=== PATIENT | male | born 1940 | race Caucasian/White ===

== ENCOUNTER 2018-02-23 19:06 | Inpatient (IN) | payer MEDICARE ==
[~2018-02-23] VITALS: Ht 177.8 cm; Wt 98.2 kg
[2018-02-23] MEDS ORDERED: HYDR25TA4 PO (22:42)
[2018-02-23] MEDS ORDERED: SPIR25TA PO (22:42)
[2018-02-23] MEDS ORDERED: FLUT1BLS3 (22:42)
[2018-02-23] MEDS ORDERED: PRAZ1CAP5 PO (22:42)
[2018-02-23] MEDS ORDERED: ALBU18HF2 INH (22:42)
[2018-02-24] MEDS ORDERED: normal saline 1000ml 1,000 ML IV SCH (00:12)
[2018-02-24] MEDS ORDERED: acetaminophen 325mg tablet PO PRN (00:15)
[2018-02-24] MEDS ORDERED: magnesium hydroxide 30ml (MOM) UD suspension PO PRN (00:15)
[2018-02-24] MEDS ORDERED: mag hydrox/Alum hydrox/simeth 30ml oral suspension PO PRN (00:15)
[2018-02-24] MEDS ORDERED: bisacodyl 10mg suppository rectal RC PRN (00:15)
[2018-02-24] MEDS ORDERED: nitroGLYCERIN 0.4mg SUBLingual tab SL PRN (00:20)
[2018-02-24 01:17] LABS: CHOL/HDL RATIO 2.6 (0.00-4.99); CHOLESTEROL 167 MG/DL (0-200); HDL CHOLESTEROL 65 MG/DL (35-60); LDL CHOLESTEROL 90 MG/DL (50-100); TRIGLYCERIDES 46 MG/DL (20-135)
[2018-02-24 01:20] VITALS: BP_SYST 139; BP_SYST 145; BP_DIAS 55; BP_DIAS 59
[2018-02-24] MEDS ORDERED: BUDE10.22 INH (01:25)
[2018-02-24] MEDS: furosemide 10 MG/1 ML 10ml inj IV SCH ×2 (01:38→07:29)
[2018-02-24] MEDS: ipratropium/albuterol 3ml nebule NEB SCH ×6 (03:42→23:29)
[2018-02-24] MEDS: CefTRIAXone/D5W-Rocephin 1gm 50 ML IV SCH ×2 (05:34→20:51)
[2018-02-24 06:15] VITALS: BP 153/79
[2018-02-24] MEDS ORDERED: haloperidol lactate 5mg/ml inj IM ONE (06:35)
[2018-02-24] MEDS: lactobacillus rhamnosus 10,000 MMU CELLS/CAPSULE PO SCH ×2 (07:29→20:38)
[2018-02-24] MEDS: heparin, porcine 5000 units/ml vial SQ SCH ×2 (07:29→20:40)
[2018-02-24] MEDS: prazosin 1mg capsule PO SCH ×2 (07:29→20:40)
[2018-02-24] MEDS ORDERED: HYDROchlorothiazide 25mg tablet PO SCH (08:00)
[2018-02-24] MEDS ORDERED: amiodarone 200mg tablet PO ONE (09:10)
[2018-02-24 11:44] VITALS: BP 108/63
[2018-02-24] MEDS ORDERED: albuterol 2.5 MG/3 ML nebule NEB PRN (12:05)
[2018-02-24 15:52] LABS: CLARITY,URINE CLEAR (Clear); COLOR,URINE YELLOW (Yellow); GLUCOSE, URINE NEGATIVE (Neg); KETONES,URINE NEGATIVE (Neg); LEUKOCYTE ESTERASE ,URINE NEGATIVE (Neg); NITRITES, URINE NEGATIVE (Neg); OCCULT BLOOD,URINE NEGATIVE (Neg); PROTEIN,URINE NEGATIVE (Neg); UROBILINOGEN,URINE 0.2 E.U/dL (0.2-1.0)
[2018-02-24 15:53] LABS: UA COLLECTION TYPE CLN CATCH MIDSTREAM
[2018-02-24 16:43] LABS: ALBUMIN 3.7 G/DL (3.4-5.0); ANION GAP 9 (8-16); BLOOD UREA NITROGEN 33 MG/DL (7-18); BUN/CREATININE RATIO 29.2 (5.4-32.0); CALCIUM 9.1 MG/DL (8.5-10.1); CHLORIDE 97 MMOL/L (99-107); CREATININE 1.13 MG/DL (0.60-1.10); GLUCOSE 110 MG/DL (70-104); POTASSIUM 3.8 MMOL/L (3.5-5.1); SODIUM 139 MMOL/L (135-145); TOTAL CARBON DIOXIDE 32.9 MMOL/L (24-32); eGFR 63 ML/MIN
[2018-02-24 17:00] LABS: BASOPHILS % (AUTO) 0.3 % (0-1); EOSINOPHILS % (AUTO) 0 % (0-6); HEMOGLOBIN 17.6 g/dl (14.0-17.9); LYMPHOCYTES # (AUTO) 0.7 X10'3 (1.1-4.8); LYMPHOCYTES % (AUTO) 4.6 % (21-51); MEAN CORPUSCULAR HEMOGLOBIN 29.5 PG (27.0-31.0); MEAN CORPUSCULAR HGB CONC 33.2 % (33.0-36.5); MEAN CORPUSCULAR VOLUME 88.9 FL (78-98); MEAN PLATELET VOLUME 7.5 FL (7.4-10.4); MONOCYTES # (AUTO) 1.3 X10'3 (0-0.9); NEUTROPHILS # (AUTO) 12.5 X10'3 (1.8-7.7); NEUTROPHILS % (AUTO) 86.1 % (42-75); PLATELET COUNT 238 X10'3 (140-440); RED BLOOD COUNT 5.96 X10'6 (4.70-6.10); RED CELL DISTRIBUTION WIDTH 14.9 % (11.5-14.5); WHITE BLOOD COUNT 14.6 X10'3 (4.5-11.0)
[2018-02-24 19:00] VITALS: BP 120/52
[2018-02-24] MEDS: furosemide 20 MG/2 ML vial IV SCH (20:33)
[2018-02-24] MEDS: metoprolol tartrate 12.5mg (1/2 tablet) PO SCH (20:38)
[2018-02-24] MEDS: amiodarone 200mg tablet PO SCH (20:38)
[2018-02-25] VITALS (11 sets, daily range): BP systolic 81–129; BP diastolic 46–69
[2018-02-25] MEDS: ipratropium/albuterol 3ml nebule NEB SCH ×5 (03:18→19:52)
[2018-02-25 07:02] LABS: BASOPHILS % (AUTO) 0.2 % (0-1); EOSINOPHILS # (AUTO) 0.1 X10'3 (0-0.9); EOSINOPHILS % (AUTO) 0.5 % (0-6); HEMATOCRIT 51.7 % (42.0-52.0); LYMPHOCYTES # (AUTO) 0.7 X10'3 (1.1-4.8); LYMPHOCYTES % (AUTO) 6.7 % (21-51); MEAN CORPUSCULAR HEMOGLOBIN 29.1 PG (27.0-31.0); MEAN CORPUSCULAR HGB CONC 32.8 % (33.0-36.5); MEAN CORPUSCULAR VOLUME 88.6 FL (78-98); MEAN PLATELET VOLUME 7.2 FL (7.4-10.4); MONOCYTES # (AUTO) 0.9 X10'3 (0-0.9); MONOCYTES % (AUTO) 8.8 % (2-12); NEUTROPHILS % (AUTO) 83.8 % (42-75); PLATELET COUNT 221 X10'3 (140-440); RED BLOOD COUNT 5.84 X10'6 (4.70-6.10); RED CELL DISTRIBUTION WIDTH 14.9 % (11.5-14.5); WHITE BLOOD COUNT 10.7 X10'3 (4.5-11.0)
[2018-02-25 07:25] LABS: ALANINE AMINOTRANSFERASE 90 U/L (12-78); ALBUMIN 3.4 G/DL (3.4-5.0); ALKALINE PHOSPHATASE 65 IU/L (46-116); ANION GAP 6 (8-16); ASPARTATE AMINO TRANSFERASE 122 U/L (10-37); BILIRUBIN,TOTAL 0.6 MG/DL (0.1-1.0); BLOOD UREA NITROGEN 34 MG/DL (7-18); BUN/CREATININE RATIO 29.6 (5.4-32.0); CHLORIDE 97 MMOL/L (99-107); CREATININE 1.15 MG/DL (0.60-1.10); GLUCOSE 130 MG/DL (70-104); MAGNESIUM 2.3 MG/DL (1.5-2.4); POTASSIUM 3.4 MMOL/L (3.5-5.1); SODIUM 140 MMOL/L (135-145); TOTAL CARBON DIOXIDE 37.1 MMOL/L (24-32); TOTAL PROTEIN 6.7 G/DL (6.4-8.2); eGFR 62 ML/MIN
[2018-02-25] MEDS: amiodarone 200mg tablet PO SCH ×2 (08:44→19:22)
[2018-02-25] MEDS: metoprolol tartrate 12.5mg (1/2 tablet) PO SCH ×2 (08:44→19:21)
[2018-02-25] MEDS: lactobacillus rhamnosus 10,000 MMU CELLS/CAPSULE PO SCH ×2 (08:45→19:22)
[2018-02-25] MEDS: prazosin 1mg capsule PO SCH ×2 (08:45→19:21)
[2018-02-25] MEDS: heparin, porcine 5000 units/ml vial SQ SCH ×2 (08:46→19:23)
[2018-02-25] MEDS: furosemide 20 MG/2 ML vial IV SCH ×2 (08:47→19:20)
[2018-02-25] MEDS ORDERED: furosemide 40mg/4ml inj IV ONE (19:45)
[2018-02-25] MEDS ORDERED: amiodarone 150mg/dext, iso-os 100 ML IV ONE (20:25)
[2018-02-25] MEDS: CefTRIAXone/D5W-Rocephin 1gm 50 ML IV SCH (21:26)
[2018-02-25] MEDS: amiodarone/D5 360MG/200ML BAG 200 ML IV SCH (22:23)
[2018-02-26] MEDS: ipratropium/albuterol 3ml nebule NEB SCH ×7 (00:08→23:29)
[2018-02-26] MEDS: amiodarone/D5 360MG/200ML BAG 200 ML IV SCH (03:50)
[2018-02-26 05:40] LABS: BASOPHILS % (AUTO) 0.1 % (0-1); EOSINOPHILS # (AUTO) 0.1 X10'3 (0-0.9); EOSINOPHILS % (AUTO) 0.8 % (0-6); HEMATOCRIT 49.8 % (42.0-52.0); HEMOGLOBIN 16.4 g/dl (14.0-17.9); LYMPHOCYTES # (AUTO) 0.7 X10'3 (1.1-4.8); LYMPHOCYTES % (AUTO) 7.7 % (21-51); MEAN CORPUSCULAR HEMOGLOBIN 29.4 PG (27.0-31.0); MEAN CORPUSCULAR HGB CONC 32.8 % (33.0-36.5); MEAN CORPUSCULAR VOLUME 89.6 FL (78-98); MONOCYTES # (AUTO) 0.8 X10'3 (0-0.9); NEUTROPHILS # (AUTO) 7.6 X10'3 (1.8-7.7); NEUTROPHILS % (AUTO) 82.4 % (42-75); PLATELET COUNT 221 X10'3 (140-440); RED BLOOD COUNT 5.56 X10'6 (4.70-6.10); RED CELL DISTRIBUTION WIDTH 14.3 % (11.5-14.5); WHITE BLOOD COUNT 9.2 X10'3 (4.5-11.0)
[2018-02-26 06:01] LABS: ALANINE AMINOTRANSFERASE 85 U/L (12-78); ALBUMIN 3.2 G/DL (3.4-5.0); ALKALINE PHOSPHATASE 60 IU/L (46-116); ANION GAP 5 (8-16); ASPARTATE AMINO TRANSFERASE 83 U/L (10-37); BILIRUBIN,TOTAL 0.5 MG/DL (0.1-1.0); BLOOD UREA NITROGEN 33 MG/DL (7-18); BUN/CREATININE RATIO 30.6 (5.4-32.0); CALCIUM 8.7 MG/DL (8.5-10.1); CHLORIDE 96 MMOL/L (99-107); CREATININE 1.08 MG/DL (0.60-1.10); GLUCOSE 117 MG/DL (70-104); MAGNESIUM 2.2 MG/DL (1.5-2.4); POTASSIUM 3.3 MMOL/L (3.5-5.1); SODIUM 139 MMOL/L (135-145); TOTAL CARBON DIOXIDE 38.5 MMOL/L (24-32); TOTAL PROTEIN 6.4 G/DL (6.4-8.2); eGFR 67 ML/MIN
[2018-02-26 06:35] VITALS: BP 112/57
[2018-02-26] MEDS: furosemide 20 MG/2 ML vial IV SCH ×2 (09:13→20:09)
[2018-02-26] MEDS: lactobacillus rhamnosus 10,000 MMU CELLS/CAPSULE PO SCH ×2 (09:14→20:08)
[2018-02-26] MEDS: metoprolol tartrate 12.5mg (1/2 tablet) PO SCH (09:14)
[2018-02-26] MEDS: amiodarone 200mg tablet PO SCH (09:14)
[2018-02-26] MEDS: prazosin 1mg capsule PO SCH ×2 (09:15→20:00)
[2018-02-26] MEDS: heparin, porcine 5000 units/ml vial SQ SCH (09:16)
[2018-02-26] MEDS ORDERED: diltiazem CD 120mg capsule (once-daily) PO SCH (09:35)
[2018-02-26] MEDS ORDERED: magnesium/D5W IVPB 100 ML IV PRN (09:45)
[2018-02-26] MEDS ORDERED: potassium Cl 20 mEq SR tablet PO PRN (09:45)
[2018-02-26] MEDS ORDERED: magnesium Cl slow-release 64mg tablet PO PRN (09:45)
[2018-02-26] MEDS ORDERED: potassium Cl 40MEQ/NS 500ml 500 ML IV PRN ×2 (09:45)
[2018-02-26 11:00] VITALS: BP 86/56
[2018-02-26 15:00] VITALS: BP 102/57
[2018-02-26] MEDS ORDERED: methylPREDNISolone sod succ 125mg/2ml vial IV ONE (15:40)
[2018-02-26] MEDS: azithromycin 250mg tablet PO SCH (15:45)
[2018-02-26] MEDS ORDERED: iohexol 350MG/ML 100ml bottle IV ONE (15:48)
[2018-02-26 17:55] LABS: ABG BASE EXCESS 9.1 mmol/L (-2.0-3.0); ABG HCO3 34.7 mmol/L (22.0-26.0); ABG OXYGEN SATURATION 91.4 % (95-98); ABG PCO2 (T) 49.3 mmHg (35.0-48.0); ABG PH (T) 7.465 (7.350-7.450); ABG PO2 (T) 61.6 mmHg (83-108); ALLEN'S TEST Positive; FLOW 2 L/min; FMetHb 0.1 % (0.3-1.12); FO2Hb 90.4 % (94-100); TOTAL HEMOGLOBIN 16.7 G/dl (14.0-18.0)
[2018-02-26] MEDS ORDERED: ipratropium/albuterol 3ml nebule NEB SCH (19:00)
[2018-02-26 19:33] VITALS: BP 97/50
[2018-02-26] MEDS: apixaban 5mg tablet PO SCH (20:08)
[2018-02-26] MEDS: methylPREDNISolone sod succ 125mg/2ml vial IV SCH (20:09)
[2018-02-26] MEDS: CefTRIAXone/D5W-Rocephin 1gm 50 ML IV SCH (20:09)
[2018-02-26] MEDS: potassium Cl 20 mEq SR tablet PO PRN (20:24)
[2018-02-26 23:00] VITALS: BP 98/52
[2018-02-27] MEDS: methylPREDNISolone sod succ 125mg/2ml vial IV SCH ×4 (02:07→20:17)
[2018-02-27] MEDS: potassium Cl 20 mEq SR tablet PO PRN (02:07)
[2018-02-27 03:00] VITALS: BP 108/53
[2018-02-27] MEDS: ipratropium/albuterol 3ml nebule NEB SCH ×6 (03:31→23:00)
[2018-02-27 06:00] VITALS: BP 113/65
[2018-02-27 06:33] LABS: BASOPHILS % (AUTO) 0 % (0-1); EOSINOPHILS % (AUTO) 0 % (0-6); HEMATOCRIT 49.6 % (42.0-52.0); HEMOGLOBIN 16.5 g/dl (14.0-17.9); LYMPHOCYTES # (AUTO) 0.2 X10'3 (1.1-4.8); LYMPHOCYTES % (AUTO) 2.8 % (21-51); MEAN CORPUSCULAR HEMOGLOBIN 29.6 PG (27.0-31.0); MEAN CORPUSCULAR HGB CONC 33.4 % (33.0-36.5); MEAN CORPUSCULAR VOLUME 88.5 FL (78-98); MEAN PLATELET VOLUME 6.8 FL (7.4-10.4); MONOCYTES # (AUTO) 0.1 X10'3 (0-0.9); MONOCYTES % (AUTO) 0.7 % (2-12); NEUTROPHILS # (AUTO) 7.6 X10'3 (1.8-7.7); NEUTROPHILS % (AUTO) 96.5 % (42-75); PLATELET COUNT 228 X10'3 (140-440); RED CELL DISTRIBUTION WIDTH 14.3 % (11.5-14.5); WHITE BLOOD COUNT 7.9 X10'3 (4.5-11.0)
[2018-02-27 07:00] LABS: ALANINE AMINOTRANSFERASE 85 U/L (12-78); ALBUMIN 3.4 G/DL (3.4-5.0); ALKALINE PHOSPHATASE 62 IU/L (46-116); ANION GAP 7 (8-16); ASPARTATE AMINO TRANSFERASE 56 U/L (10-37); BILIRUBIN,TOTAL 0.9 MG/DL (0.1-1.0); CALCIUM 9.4 MG/DL (8.5-10.1); CHLORIDE 96 MMOL/L (99-107); CREATININE 1.03 MG/DL (0.60-1.10); GLUCOSE 168 MG/DL (70-104); MAGNESIUM 2.4 MG/DL (1.5-2.4); SODIUM 138 MMOL/L (135-145); TOTAL CARBON DIOXIDE 35.5 MMOL/L (24-32); TOTAL PROTEIN 6.8 G/DL (6.4-8.2); eGFR 70 ML/MIN
[2018-02-27 07:12] LABS: BLOOD UREA NITROGEN 27 MG/DL (7-18); BUN/CREATININE RATIO 26.2 (5.4-32.0)
[2018-02-27] MEDS: metoprolol succinate 25mg (24-HOUR) SR. Tablet PO SCH (09:07)
[2018-02-27] MEDS: azithromycin 250mg tablet PO SCH (09:07)
[2018-02-27] MEDS: prazosin 1mg capsule PO SCH ×2 (09:08→20:18)
[2018-02-27] MEDS: furosemide 20 MG/2 ML vial IV SCH ×2 (09:08→20:16)
[2018-02-27] MEDS: lactobacillus rhamnosus 10,000 MMU CELLS/CAPSULE PO SCH ×2 (09:08→20:18)
[2018-02-27] MEDS: apixaban 5mg tablet PO SCH ×2 (09:08→20:18)
[2018-02-27 11:00] VITALS: BP 93/67
[2018-02-27 15:00] VITALS: BP 107/65
[2018-02-27 19:03] VITALS: BP 107/47
[2018-02-27] MEDS: CefTRIAXone/D5W-Rocephin 1gm 50 ML IV SCH (20:30)
[2018-02-27] MEDS: temazepam 15mg capsule PO PRN (22:49)
[2018-02-27 23:22] VITALS: BP 101/50
[2018-02-28] MEDS: methylPREDNISolone sod succ 125mg/2ml vial IV SCH ×4 (02:48→23:18)
[2018-02-28 03:00] VITALS: BP 101/58
[2018-02-28] MEDS: ipratropium/albuterol 3ml nebule NEB SCH ×6 (03:00→23:00)
[2018-02-28 06:00] VITALS: BP 106/63
[2018-02-28 06:13] LABS: BASOPHILS % (AUTO) 0 % (0-1); EOSINOPHILS % (AUTO) 0 % (0-6); HEMATOCRIT 49.2 % (42.0-52.0); HEMOGLOBIN 16.4 g/dl (14.0-17.9); LYMPHOCYTES # (AUTO) 0.3 X10'3 (1.1-4.8); LYMPHOCYTES % (AUTO) 2.2 % (21-51); MEAN CORPUSCULAR HEMOGLOBIN 29.9 PG (27.0-31.0); MEAN CORPUSCULAR HGB CONC 33.4 % (33.0-36.5); MEAN CORPUSCULAR VOLUME 89.5 FL (78-98); MEAN PLATELET VOLUME 7.1 FL (7.4-10.4); MONOCYTES # (AUTO) 0.3 X10'3 (0-0.9); MONOCYTES % (AUTO) 2.2 % (2-12); NEUTROPHILS # (AUTO) 11.9 X10'3 (1.8-7.7); NEUTROPHILS % (AUTO) 95.6 % (42-75); PLATELET COUNT 222 X10'3 (140-440); RED CELL DISTRIBUTION WIDTH 14.3 % (11.5-14.5); WHITE BLOOD COUNT 12.5 X10'3 (4.5-11.0)
[2018-02-28 06:31] LABS: ALANINE AMINOTRANSFERASE 83 U/L (12-78); ALBUMIN 3.1 G/DL (3.4-5.0); ALKALINE PHOSPHATASE 53 IU/L (46-116); ANION GAP 1 (8-16); ASPARTATE AMINO TRANSFERASE 36 U/L (10-37); BILIRUBIN,TOTAL 0.5 MG/DL (0.1-1.0); BLOOD UREA NITROGEN 32 MG/DL (7-18); CALCIUM 8.6 MG/DL (8.5-10.1); CHLORIDE 98 MMOL/L (99-107); CREATININE 0.97 MG/DL (0.60-1.10); GLUCOSE 164 MG/DL (70-104); MAGNESIUM 2.4 MG/DL (1.5-2.4); POTASSIUM 4.2 MMOL/L (3.5-5.1); SODIUM 137 MMOL/L (135-145); TOTAL CARBON DIOXIDE 37.7 MMOL/L (24-32); TOTAL PROTEIN 6.3 G/DL (6.4-8.2); eGFR 75 ML/MIN
[2018-02-28] MEDS: furosemide 20 MG/2 ML vial IV SCH ×2 (08:05→20:36)
[2018-02-28] MEDS: metoprolol succinate 25mg (24-HOUR) SR. Tablet PO SCH (08:06)
[2018-02-28] MEDS: lactobacillus rhamnosus 10,000 MMU CELLS/CAPSULE PO SCH ×2 (08:06→20:35)
[2018-02-28] MEDS: azithromycin 250mg tablet PO SCH (08:06)
[2018-02-28] MEDS: prazosin 1mg capsule PO SCH ×2 (08:06→20:35)
[2018-02-28] MEDS: apixaban 5mg tablet PO SCH ×2 (08:06→20:36)
[2018-02-28 11:30] VITALS: BP 103/59
[2018-02-28 15:00] VITALS: BP 111/67
[2018-02-28 19:00] VITALS: BP 118/59
[2018-02-28] MEDS: CefTRIAXone/D5W-Rocephin 1gm 50 ML IV SCH (20:36)
[2018-02-28] MEDS: temazepam 15mg capsule PO PRN (22:38)
[2018-02-28 23:00] VITALS: BP 112/63
[2018-03-01] MEDS: ipratropium/albuterol 3ml nebule NEB SCH ×6 (03:00→23:00)
[2018-03-01 03:22] VITALS: BP 105/53
[2018-03-01 05:30] VITALS: BP 116/72
[2018-03-01 06:06] LABS: BASOPHILS % (AUTO) 0 % (0-1); EOSINOPHILS % (AUTO) 0 % (0-6); HEMATOCRIT 51.2 % (42.0-52.0); HEMOGLOBIN 16.6 g/dl (14.0-17.9); LYMPHOCYTES # (AUTO) 0.3 X10'3 (1.1-4.8); LYMPHOCYTES % (AUTO) 2.1 % (21-51); MEAN CORPUSCULAR HEMOGLOBIN 29.1 PG (27.0-31.0); MEAN CORPUSCULAR HGB CONC 32.5 % (33.0-36.5); MEAN CORPUSCULAR VOLUME 89.4 FL (78-98); MEAN PLATELET VOLUME 7.4 FL (7.4-10.4); MONOCYTES # (AUTO) 0.3 X10'3 (0-0.9); MONOCYTES % (AUTO) 2.1 % (2-12); NEUTROPHILS % (AUTO) 95.8 % (42-75); PLATELET COUNT 209 X10'3 (140-440); RED BLOOD COUNT 5.72 X10'6 (4.70-6.10); RED CELL DISTRIBUTION WIDTH 13.9 % (11.5-14.5); WHITE BLOOD COUNT 12.5 X10'3 (4.5-11.0)
[2018-03-01 06:12] LABS: ALANINE AMINOTRANSFERASE 88 U/L (12-78); ALBUMIN 3.2 G/DL (3.4-5.0); ALKALINE PHOSPHATASE 51 IU/L (46-116); ANION GAP 3 (8-16); ASPARTATE AMINO TRANSFERASE 32 U/L (10-37); BILIRUBIN,TOTAL 0.6 MG/DL (0.1-1.0); BLOOD UREA NITROGEN 34 MG/DL (7-18); BUN/CREATININE RATIO 39.1 (5.4-32.0); CALCIUM 8.5 MG/DL (8.5-10.1); CHLORIDE 98 MMOL/L (99-107); CREATININE 0.87 MG/DL (0.60-1.10); GLUCOSE 162 MG/DL (70-104); MAGNESIUM 2.5 MG/DL (1.5-2.4); POTASSIUM 4.3 MMOL/L (3.5-5.1); SODIUM 139 MMOL/L (135-145); TOTAL CARBON DIOXIDE 38.3 MMOL/L (24-32); TOTAL PROTEIN 6.4 G/DL (6.4-8.2); eGFR 86 ML/MIN
[2018-03-01 06:50] LABS: PLATELET ESTIMATE NORMAL; TOTAL CELLS COUNTED 100
[2018-03-01] MEDS: methylPREDNISolone sod succ 125mg/2ml vial IV SCH ×2 (07:20→20:58)
[2018-03-01] MEDS: furosemide 20 MG/2 ML vial IV SCH ×2 (07:20→21:00)
[2018-03-01] MEDS: metoprolol succinate 25mg (24-HOUR) SR. Tablet PO SCH (07:21)
[2018-03-01] MEDS: apixaban 5mg tablet PO SCH ×2 (07:22→20:58)
[2018-03-01] MEDS: azithromycin 250mg tablet PO SCH (07:22)
[2018-03-01] MEDS: lactobacillus rhamnosus 10,000 MMU CELLS/CAPSULE PO SCH ×2 (07:22→20:58)
[2018-03-01] MEDS: prazosin 1mg capsule PO SCH ×2 (07:22→21:00)
[2018-03-01 11:00] VITALS: BP 91/47
[2018-03-01 15:00] VITALS: BP 119/57
[2018-03-01 19:00] VITALS: BP 109/62
[2018-03-01] MEDS: CefTRIAXone/D5W-Rocephin 1gm 50 ML IV SCH (20:58)
[2018-03-01 23:00] VITALS: BP 98/53
[2018-03-01] MEDS: temazepam 15mg capsule PO PRN (23:16)
[2018-03-02 03:00] VITALS: BP 90/50
[2018-03-02] MEDS: ipratropium/albuterol 3ml nebule NEB SCH ×3 (03:00→11:05)
[2018-03-02 06:58] VITALS: BP 103/55
[2018-03-02] MEDS: prazosin 1mg capsule PO SCH (08:36)
[2018-03-02] MEDS: furosemide 20 MG/2 ML vial IV SCH (08:36)
[2018-03-02] MEDS: metoprolol succinate 25mg (24-HOUR) SR. Tablet PO SCH (08:38)
[2018-03-02] MEDS: apixaban 5mg tablet PO SCH (08:39)
[2018-03-02] MEDS: azithromycin 250mg tablet PO SCH (08:40)
[2018-03-02] MEDS: lactobacillus rhamnosus 10,000 MMU CELLS/CAPSULE PO SCH (08:40)
[2018-03-02] MEDS: methylPREDNISolone sod succ 125mg/2ml vial IV SCH (08:43)
[2018-03-02 11:00] VITALS: BP 110/66
[2018-03-02] MEDS ORDERED: METO-395 PO (11:40)
[2018-03-02] MEDS ORDERED: PRED20TA PO (11:40)
[2018-03-02] MEDS ORDERED: APIX5TAB3 PO (11:40)
[2018-03-02] MEDS ORDERED: FURO20TA4 PO (11:40)
[2018-03-02] MEDS ORDERED: TEMA15CA PO (11:51)
== END 2018-03-02 13:25 | disposition home or self-care (01) | DRG 189 ==
LOC: ER 19:07 → ED HOLD 02-24 00:12 → SUR 3N 02-24 01:40 → PCU 3S 02-25 20:20
PROVIDERS: ADMIT Emergency Medicine; ATTEND Family Medicine
PROC: B32T1ZZ Computerized Tomography (CT Scan) of Left Pulmonary Artery using Low Osmolar Contrast (ICD-10-PCS; principal; 2018-02-26)
PROC: B3201ZZ Computerized Tomography (CT Scan) of Thoracic Aorta using Low Osmolar Contrast (ICD-10-PCS; 2018-02-26)
PROC: B32S1ZZ Computerized Tomography (CT Scan) of Right Pulmonary Artery using Low Osmolar Contrast (ICD-10-PCS; 2018-02-26)
DX: J96.21 Acute and chronic respiratory failure with hypoxia (principal); J44.1 Chronic obstructive pulmonary disease with (acute) exacerbation; I48.92 Unspecified atrial flutter; I50.32 Chronic diastolic (congestive) heart failure; I42.9 Cardiomyopathy, unspecified; L03.115 Cellulitis of right lower limb; L03.116 Cellulitis of left lower limb; N17.9 Acute kidney failure, unspecified; J44.0 Chronic obstructive pulmonary disease with (acute) lower respiratory infection; I48.0 Paroxysmal atrial fibrillation; R73.03 Prediabetes; E78.5 Hyperlipidemia, unspecified; R74.0 Nonspecific elevation of levels of transaminase and lactic acid dehydrogenase [LDH]; R91.8 Other nonspecific abnormal finding of lung field; J20.9 Acute bronchitis, unspecified; E87.6 Hypokalemia; F17.290 Nicotine dependence, other tobacco product, uncomplicated; I11.0 Hypertensive heart disease with heart failure; Z99.81 Dependence on supplemental oxygen; Z79.899 Other long term (current) drug therapy; Z85.828 Personal history of other malignant neoplasm of skin; Z82.49 Family history of ischemic heart disease and other diseases of the circulatory system; Z71.6 Tobacco abuse counseling
CPT/HCPCS: 36415; 36600; 71045; 71046; 71275; 80048; 80053; 80061; 81003; 82803; 83036; 83605; 83735; 84132; 84484; 85018; 85025; 87040; 87070; 87088; 93005; 93306; 94640; 94760; 97116; 97162; 99284; 99285; J0282; J0696; J1644; J1940; J2930; J7030; Q9967

== ENCOUNTER 2018-03-11 17:41 | Emergency (ER) | payer MEDICARE ==
[~2018-03-11] VITALS: Ht 177.8 cm; Wt 96.0 kg
[~2018-03-11 17:41] MED LIST: ALBU18HF2 INH; APIX5TAB3 PO; BUDE10.22 INH; FURO20TA4 PO; METO-395 PO; PRAZ1CAP5 PO; PRED20TA PO; SPIR25TA PO; TEMA15CA PO
[2018-03-11] MEDS ORDERED: ipratropium/albuterol 3ml nebule NEB ONE (18:15)
[2018-03-11 18:16] LABS: BASOPHILS % (AUTO) 0.2 % (0-1); EOSINOPHILS # (AUTO) 0.3 X10'3 (0-0.9); EOSINOPHILS % (AUTO) 2.3 % (0-6); HEMATOCRIT 50.1 % (42.0-52.0); HEMOGLOBIN 16.4 g/dl (14.0-17.9); LYMPHOCYTES # (AUTO) 0.9 X10'3 (1.1-4.8); LYMPHOCYTES % (AUTO) 7.8 % (21-51); MEAN CORPUSCULAR HEMOGLOBIN 29.4 PG (27.0-31.0); MEAN CORPUSCULAR HGB CONC 32.7 % (33.0-36.5); MEAN CORPUSCULAR VOLUME 89.9 FL (78-98); MEAN PLATELET VOLUME 6.4 FL (7.4-10.4); MONOCYTES # (AUTO) 0.6 X10'3 (0-0.9); MONOCYTES % (AUTO) 5.7 % (2-12); NEUTROPHILS # (AUTO) 9.2 X10'3 (1.8-7.7); PLATELET COUNT 215 X10'3 (140-440); RED BLOOD COUNT 5.57 X10'6 (4.70-6.10); RED CELL DISTRIBUTION WIDTH 14.5 % (11.5-14.5); WHITE BLOOD COUNT 10.9 X10'3 (4.5-11.0)
[2018-03-11 18:27] LABS: INR 0.9 INR; PARTIAL THROMBOPLASTIN TIME 23 SECONDS (22-32); PROTHROMBIN TIME 9.8 SECONDS (9.0-12.0)
[2018-03-11 18:33] LABS: ALANINE AMINOTRANSFERASE 59 U/L (12-78); ALBUMIN 3.3 G/DL (3.4-5.0); ALKALINE PHOSPHATASE 68 IU/L (46-116); ANION GAP 6 (8-16); ASPARTATE AMINO TRANSFERASE 25 U/L (10-37); BILIRUBIN,TOTAL 0.4 MG/DL (0.1-1.0); BLOOD UREA NITROGEN 16 MG/DL (7-18); BUN/CREATININE RATIO 12.8 (5.4-32.0); CALCIUM 8.8 MG/DL (8.5-10.1); CHLORIDE 102 MMOL/L (99-107); CREATININE 1.25 MG/DL (0.60-1.10); GLUCOSE 102 MG/DL (70-104); POTASSIUM 4.1 MMOL/L (3.5-5.1); SODIUM 141 MMOL/L (135-145); TOTAL CARBON DIOXIDE 33.1 MMOL/L (24-32); TOTAL PROTEIN 6.6 G/DL (6.4-8.2); eGFR 56 ML/MIN
[2018-03-11 20:00] VITALS: BP 125/70
== END 2018-03-11 20:03 | disposition home or self-care (01) ==
LOC: ER 17:41
DX: R60.9 Edema, unspecified (principal); R06.02 Shortness of breath; J44.9 Chronic obstructive pulmonary disease, unspecified; I50.9 Heart failure, unspecified; Z79.899 Other long term (current) drug therapy
CPT/HCPCS: 36415; 71045; 80053; 83880; 84484; 85025; 85610; 85730; 93005; 93970; 94640; 94760; 99285

== ENCOUNTER 2018-09-04 14:09 | Inpatient (IN) | payer MEDICARE ==
[~2018-09-04] VITALS: Ht 177.8 cm; Wt 95.4 kg
[~2018-09-04 14:09] MED LIST changes: -PRED20TA PO
[2018-09-04 15:02] LABS: ALANINE AMINOTRANSFERASE 22 U/L (12-78); ALBUMIN 3.2 G/DL (3.4-5.0); ALBUMIN/GLOBULIN RATIO 0.7 (1.1-1.5); ALKALINE PHOSPHATASE 61 IU/L (46-116); ANION GAP 8 (8-16); ASPARTATE AMINO TRANSFERASE 16 U/L (10-37); BILIRUBIN,TOTAL 0.6 MG/DL (0.1-1.0); BLOOD UREA NITROGEN 18 MG/DL (7-18); BUN/CREATININE RATIO 16.2 (5.4-32.0); CALCIUM 9.1 MG/DL (8.5-10.1); CHLORIDE 100 MMOL/L (99-107); CREATININE 1.11 MG/DL (0.60-1.10); GLUCOSE 128 MG/DL (70-104); POTASSIUM 4.1 MMOL/L (3.5-5.1); SODIUM 136 MMOL/L (135-145); TOTAL PROTEIN 7.6 G/DL (6.4-8.2); eGFR 64 ML/MIN
[2018-09-04 15:05] LABS: BASOPHILS # (AUTO) 0.1 X10'3 (0-0.2); BASOPHILS % (AUTO) 0.5 % (0-1); EOSINOPHILS # (AUTO) 0.1 X10'3 (0-0.9); EOSINOPHILS % (AUTO) 0.7 % (0-6); HEMATOCRIT 48.3 % (42.0-52.0); HEMOGLOBIN 15.6 g/dl (14.0-17.9); LYMPHOCYTES # (AUTO) 0.7 X10'3 (1.1-4.8); LYMPHOCYTES % (AUTO) 4.9 % (21-51); MEAN CORPUSCULAR HEMOGLOBIN 29.3 PG (27.0-31.0); MEAN CORPUSCULAR HGB CONC 32.3 % (33.0-36.5); MEAN CORPUSCULAR VOLUME 90.8 FL (78-98); MEAN PLATELET VOLUME 6.8 FL (7.4-10.4); MONOCYTES # (AUTO) 0.8 X10'3 (0-0.9); MONOCYTES % (AUTO) 5.2 % (2-12); NEUTROPHILS # (AUTO) 13.3 X10'3 (1.8-7.7); NEUTROPHILS % (AUTO) 88.7 % (42-75); PLATELET COUNT 388 X10'3 (140-440); RED BLOOD COUNT 5.32 X10'6 (4.70-6.10); RED CELL DISTRIBUTION WIDTH 12.7 % (11.5-14.5)
[2018-09-04] MEDS ORDERED: diltiazem 5mg/ml 5ml inj. IV ONE ×6 (15:05→17:35)
[2018-09-04 15:25] LABS: CLARITY,URINE CLEAR (Clear); COLOR,URINE STRAW (Yellow); GLUCOSE, URINE NEGATIVE (Neg); KETONES,URINE NEGATIVE (Neg); LEUKOCYTE ESTERASE ,URINE NEGATIVE (Neg); NITRITES, URINE NEGATIVE (Neg); OCCULT BLOOD,URINE NEGATIVE (Neg); PH,URINE 5.5 (4.8-8.0); PROTEIN,URINE NEGATIVE (Neg); UROBILINOGEN,URINE 0.2 E.U/dL (0.2-1.0)
[2018-09-04] MEDS ORDERED: METF500T PO (15:26)
[2018-09-04 15:28] LABS: UA COLLECTION TYPE CLN CATCH MIDSTREAM
[2018-09-04] MEDS ORDERED: diltiazem-D5W 125mg/125ml 125 ML IV ONE ×2 (15:33→17:24)
[2018-09-04] MEDS ORDERED: levoFLOXACIN-Levaquin 750MG/D5 150 ML IV ONE (15:35)
[2018-09-04] MEDS ORDERED: methylPREDNISolone sod succ 125mg/2ml vial IV ONE (16:10)
[2018-09-04] MEDS: benzocaine/menthol oral lozeng 1 EACH BOX MM PRN ×3 (16:29→23:21)
[2018-09-04] MEDS ORDERED: diltiazem CD 180mg cap (once-daily) PO ONE (17:35)
--- NOTE | 2018-09-04 17:39 | NUR ---
RN went into room to increase Cardizem gtt to 10mg per [facility] order. Dr. Richards at bedside. Gave RN orders to dc gtt after given 10mg Cardizem IVP and PO Cardizem 180mg. RN repeated verbal orders to Dr. Richards for confirmation.
[2018-09-04] MEDS ORDERED: HYDROcodone/acetaminophen 5mg/325mg tablet PO PRN (17:40)
[2018-09-04] MEDS ORDERED: mag hydrox/Alum hydrox/simeth 30ml oral suspension PO PRN (17:40)
[2018-09-04] MEDS ORDERED: acetaminophen 325mg tablet PO PRN (17:40)
[2018-09-04] MEDS ORDERED: magnesium hydroxide 30ml (MOM) UD suspension PO PRN (17:40)
[2018-09-04] MEDS ORDERED: morphine 4 MG/ML inj SYRINge IV PRN ×2 (17:40)
[2018-09-04] MEDS ORDERED: ondansetron/PF 4mg/2ml inj IV PRN (17:40)
[2018-09-04] MEDS ORDERED: albuterol 2.5 MG/3 ML nebule NEB PRN (17:50)
--- NOTE | 2018-09-04 19:28 | NUR ---
report called to [facility], pt will be transported as soon as ultrasound exam completed
[2018-09-04 20:30] VITALS: BP 116/65
[2018-09-04] MEDS: BUDESONIDE 0.25 MG/2 ML AMPUL.NEB IH SCH (20:35)
[2018-09-04] MEDS: albuterol 2.5 MG/3 ML nebule NEB SCH (20:35)
[2018-09-04 22:00] VITALS: BP 109/60
[2018-09-04] MEDS: apixaban 5mg tablet PO SCH (22:24)
[2018-09-04] MEDS: prazosin 1mg capsule PO SCH (22:25)
[2018-09-04] MEDS: furosemide 10 MG/1 ML 10ml inj IV SCH (22:26)
[2018-09-05] VITALS (8 sets, daily range): BP systolic 93–119; BP diastolic 46–76
[2018-09-05] MEDS: albuterol 2.5 MG/3 ML nebule NEB SCH ×7 (00:26→23:12)
--- NOTE | 2018-09-05 00:46 | NUR ---
Page to Dr. Bains. PAGER ID: [phone] MESSAGE: Re: Seth Anamaria Rm: [phone] Patient would like a Restoril, Can I get an order for him please? Also RT would like him to have a flutter valve. Thanks, Maritza [facility] [phone]
[2018-09-05] MEDS: temazepam 15mg capsule PO PRN ×2 (01:01→21:10)
[2018-09-05 03:28] LABS: BASOPHILS % (AUTO) 0 % (0-1); EOSINOPHILS % (AUTO) 0 % (0-6); HEMATOCRIT 45.6 % (42.0-52.0); HEMOGLOBIN 14.7 g/dl (14.0-17.9); LYMPHOCYTES # (AUTO) 0.3 X10'3 (1.1-4.8); LYMPHOCYTES % (AUTO) 3.3 % (21-51); MEAN CORPUSCULAR HEMOGLOBIN 29.1 PG (27.0-31.0); MEAN CORPUSCULAR HGB CONC 32.2 % (33.0-36.5); MEAN CORPUSCULAR VOLUME 90.5 FL (78-98); MEAN PLATELET VOLUME 6.7 FL (7.4-10.4); MONOCYTES # (AUTO) 0.1 X10'3 (0-0.9); MONOCYTES % (AUTO) 0.7 % (2-12); NEUTROPHILS # (AUTO) 9.9 X10'3 (1.8-7.7); PLATELET COUNT 362 X10'3 (140-440); RED BLOOD COUNT 5.05 X10'6 (4.70-6.10); RED CELL DISTRIBUTION WIDTH 12.3 % (11.5-14.5); WHITE BLOOD COUNT 10.3 X10'3 (4.5-11.0)
[2018-09-05 03:37] LABS: ALBUMIN 2.9 G/DL (3.4-5.0); ANION GAP 9 (8-16); BLOOD UREA NITROGEN 25 MG/DL (7-18); BUN/CREATININE RATIO 21.9 (5.4-32.0); CHLORIDE 99 MMOL/L (99-107); CREATININE 1.14 MG/DL (0.60-1.10); GLUCOSE 200 MG/DL (70-104); POTASSIUM 4.3 MMOL/L (3.5-5.1); SODIUM 136 MMOL/L (135-145); TOTAL CARBON DIOXIDE 27.7 MMOL/L (24-32); eGFR 62 ML/MIN
--- NOTE | 2018-09-05 06:55 | NUR ---
Problems reprioritized. Patient report given, questions answered & plan of care reviewed with PRESTON Ghosh.
--- NOTE | 2018-09-05 06:56 | NUR ---
Patient in room PCU 3023. I have received report from PRESTON MURRY and had the opportunity to ask questions and assume patient care.
[2018-09-05] MEDS: BUDESONIDE 0.25 MG/2 ML AMPUL.NEB IH SCH ×2 (07:16→19:49)
--- NOTE | 2018-09-05 07:33 | NUR ---
[facility] Medication Administration: For this medication-pass time frame, all medication were reviewed, dispensed, administered and documented per hospital policy by PRESTON Cannon.
--- NOTE | 2018-09-05 07:33 | NUR ---
[facility] documentation: I have reviewed and agree with all interventions, assessments performed and documented by PRESTON Cannon.
[2018-09-05] MEDS: apixaban 5mg tablet PO SCH ×2 (07:59→19:52)
[2018-09-05] MEDS: prazosin 1mg capsule PO SCH ×2 (08:00→19:52)
[2018-09-05] MEDS: levoFLOXACIN-Levaquin 750MG/D5 150 ML IV SCH (08:00)
[2018-09-05] MEDS: furosemide 10 MG/1 ML 10ml inj IV SCH ×2 (10:13→20:02)
[2018-09-05] MEDS ORDERED: glucagon, human recombinant 1mg kit SUBCUT PRN (11:50)
[2018-09-05] MEDS ORDERED: MESSAGE TO PHARMACY PO ONE (11:50)
[2018-09-05] MEDS ORDERED: dextrose 50%-water 50ml dispensing syringe IV PRN ×2 (11:50)
[2018-09-05] MEDS ORDERED: insulin Lispro (HumaLOG) vial - multi-dose SQ SCH (11:50)
[2018-09-05] MEDS ORDERED: dextrose ORAL solution 15 GM/59 ML bottle PO PRN ×2 (11:50)
[2018-09-05] MEDS: digoxin 250mcg (0.25mg) tablet PO SCH (14:32)
--- NOTE | 2018-09-05 18:07 | NUR ---
Problems reprioritized. Patient report given, questions answered & plan of care reviewed with bethany carl. Addendum: 09/05/18 at 1822 by Davina Tai RN marcela and bedside
--- NOTE | 2018-09-05 18:10 | NUR ---
Patient in room PCU 3023. I have received report from PRESTON Ghosh and had the opportunity to ask questions and assume patient care. Patient is awake and alert seated on edge of bed, still working on dinner tray.
--- NOTE | 2018-09-05 18:25 | NUR ---
Patient in room PCU 3023. I have received report from Davina JOHNSTON and had the opportunity to ask questions and assume patient care.
--- NOTE | 2018-09-05 19:01 | NUR ---
Page to Dr. Richards Re: [facility] marked complete in orders. PAGER ID: [phone] MESSAGE: Re: Seth Conrad Room: 3023C. [facility] Blood glucose check are marked complete. Do you want to continue with [facility] assessements? Thanks Maritza MCKEON [id number]
[2018-09-05] MEDS: lactobacillus rhamnosus 10,000 MMU CELLS/CAPSULE PO SCH (19:52)
--- NOTE | 2018-09-05 20:30 | NUR ---
Spoke with patient regarding blood glucose management with insulin. Patient states he normally manages his blood glucose with metformin. He would like to hold off on starting insulin as he may go home tomorrow. He would like to re evaluate the blood sugar value in the morning if he is going to be staying in the hospital. Patient educated on goals of control with his blood glucose, verbalized understanding.
[2018-09-05] MEDS ORDERED: insulin glargine (Lantus) pen - multi-dose SQ SCH (21:00)
--- NOTE | 2018-09-05 21:00 | NUR ---
Patient refused blood glucose monitoring. Education provided to patient regarding hospital policies on metformin and insulin. Patient does not wish to do blood glucose monitoring, nor does he wish to take insulin. Patient expects to be discharged within a day or two and would prefer to manage his blood sugars with diet and metformin, as he usually does at home.
[2018-09-05] MEDS: benzocaine/menthol oral lozeng 1 EACH BOX MM PRN (22:44)
[2018-09-06] MEDS: albuterol 2.5 MG/3 ML nebule NEB SCH ×3 (02:57→11:11)
[2018-09-06 03:03] VITALS: BP 104/71
--- NOTE | 2018-09-06 03:24 | NUR ---
Requested more chloraseptic throat lozenges from pharmacy.
[2018-09-06 04:57] LABS: ALBUMIN 2.9 G/DL (3.4-5.0); ANION GAP 8 (8-16); BLOOD UREA NITROGEN 28 MG/DL (7-18); BUN/CREATININE RATIO 26.2 (5.4-32.0); CALCIUM 8.9 MG/DL (8.5-10.1); CHLORIDE 102 MMOL/L (99-107); CREATININE 1.07 MG/DL (0.60-1.10); GLUCOSE 134 MG/DL (70-104); SODIUM 139 MMOL/L (135-145); TOTAL CARBON DIOXIDE 29.3 MMOL/L (24-32); eGFR 67 ML/MIN
[2018-09-06 05:08] LABS: BASOPHILS # (AUTO) 0.1 X10'3 (0-0.2); BASOPHILS % (AUTO) 0.4 % (0-1); EOSINOPHILS % (AUTO) 0.2 % (0-6); LYMPHOCYTES # (AUTO) 0.8 X10'3 (1.1-4.8); LYMPHOCYTES % (AUTO) 5.8 % (21-51); MEAN CORPUSCULAR HEMOGLOBIN 29.9 PG (27.0-31.0); MEAN CORPUSCULAR HGB CONC 33.4 % (33.0-36.5); MEAN CORPUSCULAR VOLUME 89.5 FL (78-98); MONOCYTES # (AUTO) 0.9 X10'3 (0-0.9); MONOCYTES % (AUTO) 6.3 % (2-12); NEUTROPHILS # (AUTO) 12.8 X10'3 (1.8-7.7); NEUTROPHILS % (AUTO) 87.3 % (42-75); PLATELET COUNT 390 X10'3 (140-440); RED BLOOD COUNT 5.02 X10'6 (4.70-6.10); RED CELL DISTRIBUTION WIDTH 12.3 % (11.5-14.5); WHITE BLOOD COUNT 14.6 X10'3 (4.5-11.0)
--- NOTE | 2018-09-06 05:20 | NUR ---
Seth has been coughing intermittently for most of the day, but has not been able to provide a sputum sample. He met conditions for insulin protocol earlier today, and this was discussed with him, but Seth stated that he did not want to start insulin. He anticipates discharge soon and wants to manage his diabetes with metformin and diet as he did before hospital admission. His
--- NOTE | 2018-09-06 06:14 | NUR ---
Problems reprioritized. Patient report given, questions answered & plan of care reviewed with Monica JOHNSTON.
--- NOTE | 2018-09-06 06:16 | NUR ---
Problems reprioritized. Patient report given, questions answered & plan of care reviewed with PRESTON Anderson. Patient sleeping at time of report.
--- NOTE | 2018-09-06 06:17 | NUR ---
[facility] documentation: I have reviewed and agree with all interventions, assessments performed and documented by PRESTON Cannon.
--- NOTE | 2018-09-06 06:18 | NUR ---
[facility] Medication Administration: For this medication-pass time frame, all medication were reviewed, dispensed, administered and documented per hospital policy by PRESTON Cannon.
[2018-09-06] MEDS: BUDESONIDE 0.25 MG/2 ML AMPUL.NEB IH SCH (07:35)
[2018-09-06] MEDS: levoFLOXACIN-Levaquin 750MG/D5 150 ML IV SCH (07:44)
[2018-09-06] MEDS: prazosin 1mg capsule PO SCH (07:45)
[2018-09-06] MEDS: digoxin 250mcg (0.25mg) tablet PO SCH (07:45)
[2018-09-06] MEDS: furosemide 10 MG/1 ML 10ml inj IV SCH ×2 (07:45→07:58)
[2018-09-06] MEDS: apixaban 5mg tablet PO SCH (07:46)
[2018-09-06] MEDS: lactobacillus rhamnosus 10,000 MMU CELLS/CAPSULE PO SCH (07:46)
[2018-09-06 08:00] VITALS: BP 106/63
[2018-09-06] MEDS ORDERED: PRED20TA PO (11:36)
[2018-09-06] MEDS ORDERED: DIGO125T PO (11:36)
[2018-09-06] MEDS ORDERED: LEVO500T2 PO (11:36)
--- NOTE | 2018-09-06 12:49 | NUR ---
patient discharged home with all belongings, daughter at the bedside to take him home, discharge packet provided and discharge instructions explained.
== END 2018-09-06 12:55 | disposition home or self-care (01) | DRG 308 ==
LOC: ER 14:09 → ED HOLD 17:37 → EDBEDREQ 18:47 → PCU 3S 20:27
PROVIDERS: ADMIT Internal Medicine; ATTEND Family Medicine
DX: I48.0 Paroxysmal atrial fibrillation (principal); I50.33 Acute on chronic diastolic (congestive) heart failure; J44.0 Chronic obstructive pulmonary disease with (acute) lower respiratory infection; J96.11 Chronic respiratory failure with hypoxia; J44.1 Chronic obstructive pulmonary disease with (acute) exacerbation; E11.9 Type 2 diabetes mellitus without complications; F17.210 Nicotine dependence, cigarettes, uncomplicated; G47.9 Sleep disorder, unspecified; F43.10 Post-traumatic stress disorder, unspecified; J20.9 Acute bronchitis, unspecified; Z99.81 Dependence on supplemental oxygen; Z79.01 Long term (current) use of anticoagulants; Z79.899 Other long term (current) drug therapy; Z79.84 Long term (current) use of oral hypoglycemic drugs; Z80.42 Family history of malignant neoplasm of prostate
CPT/HCPCS: 36415; 71045; 80048; 80053; 81003; 82948; 83036; 83605; 83880; 84145; 84484; 85025; 87040; 87070; 87502; 87503; 93005; 93306; 94640; 94667; 94760; 96365; 96368; 96376; 99285; G0378; J1815; J1940; J1956; J2930; J3490

== ENCOUNTER 2018-10-18 15:50 | Emergency (ER) | payer MEDICARE ==
[~2018-10-18] VITALS: Ht 182.9 cm; Wt 97.7 kg
[~2018-10-18 15:50] MED LIST changes: +METF500T PO; -METO-395 PO; -TEMA15CA PO
[2018-10-18] MEDS ORDERED: ipratropium/albuterol 3ml nebule NEB ONE (16:25)
[2018-10-18 17:22] LABS: BASOPHILS % (AUTO) 0.1 % (0-1); EOSINOPHILS # (AUTO) 0.2 X10'3 (0-0.9); EOSINOPHILS % (AUTO) 1.8 % (0-6); HEMATOCRIT 49.4 % (42.0-52.0); HEMOGLOBIN 16.4 g/dl (14.0-17.9); LYMPHOCYTES % (AUTO) 11.2 % (21-51); MEAN CORPUSCULAR HEMOGLOBIN 29.5 PG (27.0-31.0); MEAN CORPUSCULAR HGB CONC 33.1 g/dL (33.0-36.5); MEAN PLATELET VOLUME 6.3 FL (7.4-10.4); MONOCYTES # (AUTO) 0.6 X10'3 (0-0.9); MONOCYTES % (AUTO) 6.9 % (2-12); NEUTROPHILS # (AUTO) 6.8 X10'3 (1.8-7.7); PLATELET COUNT 296 X10'3 (140-440); RED BLOOD COUNT 5.55 X10'6 (4.70-6.10); RED CELL DISTRIBUTION WIDTH 14.3 % (11.5-14.5); WHITE BLOOD COUNT 8.5 X10'3 (4.5-11.0)
[2018-10-18 17:45] VITALS: BP 130/73
[2018-10-18 17:48] LABS: ALANINE AMINOTRANSFERASE 19 U/L (12-78); ALBUMIN 3.8 G/DL (3.4-5.0); ALKALINE PHOSPHATASE 78 IU/L (46-116); ANION GAP 9 (8-16); ASPARTATE AMINO TRANSFERASE 17 U/L (10-37); BILIRUBIN,TOTAL 0.7 MG/DL (0.1-1.0); BLOOD UREA NITROGEN 17 MG/DL (7-18); BUN/CREATININE RATIO 20.2 (5.4-32.0); CALCIUM 9.4 MG/DL (8.5-10.1); CHLORIDE 104 MMOL/L (99-107); CREATININE 0.84 MG/DL (0.60-1.10); GLUCOSE 114 MG/DL (70-104); POTASSIUM 4.5 MMOL/L (3.5-5.1); SODIUM 139 MMOL/L (135-145); TOTAL CARBON DIOXIDE 25.6 MMOL/L (24-32); TOTAL PROTEIN 7.6 G/DL (6.4-8.2); eGFR 89 ML/MIN
--- NOTE | 2018-10-18 19:03 | NUR ---
PT D\C READY - JUST REMAINS IN ER SECONDARY TO NEED FOR O2 AND NO POWER AT HOME.
== END 2018-10-18 21:24 | disposition home or self-care (01) ==
LOC: ER 15:50
DX: J44.1 Chronic obstructive pulmonary disease with (acute) exacerbation (principal); I50.9 Heart failure, unspecified; Z79.899 Other long term (current) drug therapy; Z79.84 Long term (current) use of oral hypoglycemic drugs
CPT/HCPCS: 36415; 71045; 80053; 85025; 94640; 94760; 99284

== ENCOUNTER 2020-04-14 21:41 | Emergency (ER) | payer MEDICARE ==
[~2020-04-14] VITALS: Ht 175.3 cm; Wt 106.8 kg
[2020-04-14 22:32] LABS: BASOPHILS % (AUTO) 0.6 % (0-1); EOSINOPHILS # (AUTO) 0.1 X10'3 (0-0.9); EOSINOPHILS % (AUTO) 1.4 % (0-6); HEMATOCRIT 50.1 % (42.0-52.0); HEMOGLOBIN 16.4 g/dl (14.0-17.9); LYMPHOCYTES # (AUTO) 1.1 X10'3 (1.1-4.8); MEAN CORPUSCULAR HEMOGLOBIN 29.2 PG (27.0-31.0); MEAN CORPUSCULAR HGB CONC 32.9 g/dL (33.0-36.5); MEAN CORPUSCULAR VOLUME 88.8 FL (78-98); MEAN PLATELET VOLUME 6.4 FL (7.4-10.4); MONOCYTES # (AUTO) 0.7 X10'3 (0-0.9); MONOCYTES % (AUTO) 7.4 % (2-12); NEUTROPHILS # (AUTO) 6.8 X10'3 (1.8-7.7); NEUTROPHILS % (AUTO) 77.6 % (42-75); PLATELET COUNT 281 X10'3 (140-440); RED BLOOD COUNT 5.64 X10'6 (4.70-6.10); WHITE BLOOD COUNT 8.8 X10'3 (4.5-11.0)
[2020-04-14 22:42] LABS: ALANINE AMINOTRANSFERASE 21 U/L (12-78); ALBUMIN 4.1 G/DL (3.4-5.0); ALBUMIN/GLOBULIN RATIO 1.2 (1.1-1.5); ALKALINE PHOSPHATASE 74 IU/L (46-116); ANION GAP 7 (8-16); ASPARTATE AMINO TRANSFERASE 16 U/L (10-37); BILIRUBIN,TOTAL 0.7 MG/DL (0.1-1.0); BLOOD UREA NITROGEN 17 MG/DL (7-18); BUN/CREATININE RATIO 21.5 (5.4-32.0); CALCIUM 9.1 MG/DL (8.5-10.1); CHLORIDE 102 MMOL/L (99-107); CREATININE 0.79 MG/DL (0.60-1.10); GLUCOSE 112 MG/DL (70-104); SODIUM 139 MMOL/L (135-145); TOTAL CARBON DIOXIDE 30.2 MMOL/L (24-32); TOTAL PROTEIN 7.6 G/DL (6.4-8.2); eGFR > 90 ML/MIN
--- NOTE | 2020-04-15 02:22 | NUR ---
PT AWAITING TRANSPORTATION FROM HIS DAUGHTER WHO IS COMING FROM [place] WITH HIS HOME OXYGEN TANK SO HE CAN BE DISCHATGED HOME
[2020-04-15 02:44] VITALS: BP 156/86
== END 2020-04-15 02:47 | disposition home or self-care (01) ==
LOC: ER 21:42
DX: M79.662 Pain in left lower leg (principal); I50.9 Heart failure, unspecified; J44.9 Chronic obstructive pulmonary disease, unspecified; F17.210 Nicotine dependence, cigarettes, uncomplicated; Z79.01 Long term (current) use of anticoagulants; Z79.899 Other long term (current) drug therapy
CPT/HCPCS: 36415; 80053; 85025; 93971; 99284

== ENCOUNTER 2024-01-18 05:49 | Inpatient (IN) | payer MEDICARE ==
[~2024-01-18] VITALS: Ht 177.8 cm; Wt 96.8 kg
[2024-01-18] VITALS (7 sets, daily range): BP systolic 123–133; BP diastolic 66–88; PULSE 82–98; RESP 12–20; TEMP 96.7–98.6; O2SAT 92–96
[~2024-01-18 05:49] MED LIST changes: -BUDE10.22 INH; +DILT-35 PO; +FLUT1AER PO; -FURO20TA4 PO; +FURO40TA4 PO; +GABA300C PO; +IPRA3AMP31 NEB; +METF-1203 PO; -METF500T PO; -SPIR25TA PO; +SPIR50TA5 PO
[2024-01-18] MEDS ORDERED: ipratropium/albuterol 3ml nebule NEB PRN ×2 (06:35→09:20)
[2024-01-18] MEDS: ipratropium/albuterol 3ml nebule NEB SCH (06:35)
[2024-01-18] MEDS ORDERED: METO-411 PO (07:08)
[2024-01-18] MEDS ORDERED: MONT-40 PO (07:08)
[2024-01-18] MEDS: methylPREDNISolone sod succ 125mg/2ml vial IV ONE (07:21)
[2024-01-18] MEDS: furosemide 10 MG/1 ML 10ml inj IV ONE (07:22)
[2024-01-18] MEDS: CefTRIAXone/D5W-Rocephin 1gm 50 ML IV SCH (07:26)
[2024-01-18 08:02] LABS: BASOPHILS % (AUTO) 0.5 % (0-1); EOSINOPHILS # (AUTO) 0.1 X10'3 (0-0.9); EOSINOPHILS % (AUTO) 0.6 % (0-6); HEMATOCRIT 47.3 % (42.0-52.0); HEMOGLOBIN 15.7 g/dl (14.0-17.9); LYMPHOCYTES # (AUTO) 0.7 X10'3 (1.1-4.8); LYMPHOCYTES % (AUTO) 7.1 % (21-51); MEAN CORPUSCULAR HEMOGLOBIN 30.6 PG (27.0-31.0); MEAN CORPUSCULAR HGB CONC 33.2 g/dL (33.0-36.5); MEAN CORPUSCULAR VOLUME 92.1 FL (78-98); MEAN PLATELET VOLUME 6.8 FL (7.4-10.4); MONOCYTES # (AUTO) 0.6 X10'3 (0-0.9); MONOCYTES % (AUTO) 5.6 % (2-12); NEUTROPHILS # (AUTO) 8.7 X10'3 (1.8-7.7); NEUTROPHILS % (AUTO) 86.2 % (42-75); PLATELET COUNT 213 X10'3 (140-440); RED BLOOD COUNT 5.13 X10'6 (4.70-6.10); RED CELL DISTRIBUTION WIDTH 14.5 % (11.5-14.5)
[2024-01-18] MEDS: azithromycin/NS 500mg/250ml 250 ML IV SCH (08:06)
[2024-01-18 08:19] LABS: ALANINE AMINOTRANSFERASE 26 U/L (12-78); ALBUMIN 3.8 G/DL (3.4-5.0); ALBUMIN/GLOBULIN RATIO 1.1 (1.1-1.5); ALKALINE PHOSPHATASE 73 IU/L (46-116); ANION GAP 7 (8-16); ASPARTATE AMINO TRANSFERASE 23 U/L (10-37); BILIRUBIN,TOTAL 1.4 MG/DL (0.1-1.0); BLOOD UREA NITROGEN 19 MG/DL (7-18); BUN/CREATININE RATIO 21.6 (10.0-20.0); CHLORIDE 103 MMOL/L (99-107); CREATININE 0.88 MG/DL (0.60-1.10); GLUCOSE 115 MG/DL (70-104); POTASSIUM 4.2 MMOL/L (3.5-5.1); PRO BRAIN NATRIURETIC PEPTIDE 1406 PG/ML (0-450); SODIUM 141 MMOL/L (135-145); TOTAL CARBON DIOXIDE 31.2 MMOL/L (24-32); TOTAL PROTEIN 7.3 G/DL (6.4-8.2); eCRCL 68 ML/MIN; eGFR 83 ML/MIN
[2024-01-18] MEDS ORDERED: DEXTROSE 15 GM of carb/4 tabs (each vial/BOTTLE has 4 tablets) PO PRN ×2 (09:20)
[2024-01-18] MEDS ORDERED: acetaminophen 325mg tablet PO PRN (09:20)
[2024-01-18] MEDS ORDERED: magnesium 4gm in 100ml NS 100 ML IV PRN (09:20)
[2024-01-18] MEDS ORDERED: magnesium 2GM in 50ml NS 50 ML IV PRN (09:20)
[2024-01-18] MEDS ORDERED: glucagon, human recombinant 1mg kit SUBCUT PRN (09:20)
[2024-01-18] MEDS ORDERED: ondansetron/PF 4mg/2ml inj IV PRN (09:20)
[2024-01-18] MEDS ORDERED: potassium Cl 20 mEq SR tablet PO PRN ×2 (09:20)
[2024-01-18] MEDS ORDERED: bisacodyl 10mg suppository rectal RC PRN (09:20)
[2024-01-18] MEDS ORDERED: dextrose 50%-water 50ml dispensing syringe IV PRN ×2 (09:20)
[2024-01-18] MEDS ORDERED: potassium Cl 40MEQ/1/2NS 520ml 520 ML IV PRN (09:20)
[2024-01-18 10:12] LABS: HEMOGLOBIN A1C 5.9 % (4.5-6.2)
[2024-01-18] MEDS: PERFLUTREN PROTEIN-A MICROSPHR (Optison) 0.22 MG/ML 3ML VIAL IV ONE (10:22)
[2024-01-18] MEDS: albuterol 2.5 MG/3 ML nebule NEB PRN (11:18)
[2024-01-18] MEDS: INSULIN LISPRO 100 UNIT/ML INSULN.PEN MULTI-DOSE SQ SCH (12:00)
[2024-01-18] MEDS ORDERED: methylPREDNISolone sod succ/PF 40mg inj. IV SCH (16:00)
[2024-01-18] MEDS ORDERED: methylPREDNISolone sod succ 125mg/2ml vial IV SCH (16:00)
[2024-01-18] MEDS: methylPREDNISolone sod succ/PF 40mg inj. IV SCH (16:19)
[2024-01-18] MEDS: K and/or MAG REPLACEMENT MC SCH (19:44)
[2024-01-18] MEDS: prazosin 1mg capsule PO SCH (19:58)
[2024-01-18] MEDS: gabapentin 300mg capsule PO SCH (19:59)
[2024-01-18] MEDS: docusate sod 100mg capsule PO SCH (19:59)
[2024-01-18] MEDS: enoxaparin 40mg/0.4ml syringe SQ SCH (20:00)
[2024-01-18] MEDS: apixaban 5mg tablet PO SCH (20:00)
[2024-01-19] VITALS (10 sets, daily range): BP systolic 106–116; BP diastolic 46–63; PULSE 80–116; RESP 12–18; TEMP 97.9–98.9; O2SAT 92–98
[2024-01-19] MEDS: ipratropium/albuterol 3ml nebule NEB SCH (07:06)
[2024-01-19 07:17] LABS: BASOPHILS % (AUTO) 0.2 % (0-1); EOSINOPHILS % (AUTO) 0 % (0-6); HEMATOCRIT 48.7 % (42.0-52.0); HEMOGLOBIN 15.9 g/dl (14.0-17.9); LYMPHOCYTES # (AUTO) 0.4 X10'3 (1.1-4.8); LYMPHOCYTES % (AUTO) 4.1 % (21-51); MEAN CORPUSCULAR HGB CONC 32.6 g/dL (33.0-36.5); MEAN PLATELET VOLUME 6.8 FL (7.4-10.4); MONOCYTES # (AUTO) 0.3 X10'3 (0-0.9); NEUTROPHILS # (AUTO) 9.9 X10'3 (1.8-7.7); NEUTROPHILS % (AUTO) 92.7 % (42-75); PLATELET COUNT 226 X10'3 (140-440); RED BLOOD COUNT 5.29 X10'6 (4.70-6.10); RED CELL DISTRIBUTION WIDTH 14.4 % (11.5-14.5); WHITE BLOOD COUNT 10.6 X10'3 (4.5-11.0)
[2024-01-19] MEDS: CefTRIAXone/D5W-Rocephin 1gm 50 ML IV SCH (08:00)
[2024-01-19 08:09] LABS: ALANINE AMINOTRANSFERASE 26 U/L (12-78); ALBUMIN 3.6 G/DL (3.4-5.0); ALBUMIN/GLOBULIN RATIO 0.9 (1.1-1.5); ALKALINE PHOSPHATASE 72 IU/L (46-116); ANION GAP 7 (8-16); ASPARTATE AMINO TRANSFERASE 24 U/L (10-37); BILIRUBIN,TOTAL 0.9 MG/DL (0.1-1.0); BLOOD UREA NITROGEN 20 MG/DL (7-18); BUN/CREATININE RATIO 23.8 (10.0-20.0); CHLORIDE 103 MMOL/L (99-107); CREATININE 0.84 MG/DL (0.60-1.10); GLUCOSE 157 MG/DL (70-104); MAGNESIUM 2.4 MG/DL (1.5-2.4); POTASSIUM 4.1 MMOL/L (3.5-5.1); SODIUM 140 MMOL/L (135-145); TOTAL CARBON DIOXIDE 30.5 MMOL/L (24-32); TOTAL PROTEIN 7.4 G/DL (6.4-8.2); eCRCL 71 ML/MIN; eGFR 88 ML/MIN
[2024-01-19] MEDS: spironolactone 50 MG tablet PO SCH (09:41)
[2024-01-19] MEDS: metoprolol succinate 25mg (24-HOUR) SR. Tablet PO SCH (09:43)
[2024-01-19] MEDS: montelukast 10mg tablet PO SCH (09:44)
[2024-01-19] MEDS: furosemide 10 MG/1 ML 10ml inj IV SCH (09:51)
[2024-01-19] MEDS ORDERED: CEFU500T66 PO (11:46)
[2024-01-19] MEDS ORDERED: PRED20TA PO (11:46)
== END 2024-01-19 15:20 | disposition home or self-care (01) | DRG 291 ==
LOC: ER 05:49 → ED HOLD 09:35 → PCU 3S 16:07
PROVIDERS: ADMIT Family Medicine; ATTEND Family Medicine
DX: I50.33 Acute on chronic diastolic (congestive) heart failure (principal); J96.21 Acute and chronic respiratory failure with hypoxia; J44.1 Chronic obstructive pulmonary disease with (acute) exacerbation; I48.20 Chronic atrial fibrillation, unspecified; K59.00 Constipation, unspecified; E11.42 Type 2 diabetes mellitus with diabetic polyneuropathy; F17.290 Nicotine dependence, other tobacco product, uncomplicated; R31.9 Hematuria, unspecified; Z82.49 Family history of ischemic heart disease and other diseases of the circulatory system; Z80.42 Family history of malignant neoplasm of prostate; Z79.899 Other long term (current) drug therapy; Z79.84 Long term (current) use of oral hypoglycemic drugs; Z79.01 Long term (current) use of anticoagulants
CPT/HCPCS: 36415; 71045; 80053; 82948; 83036; 83605; 83735; 83880; 84145; 84484; 85025; 87040; 87081; 93005; 93306; 94640; 94760; 99285; A4623; A6196; A6212; A6449; A6590; G0378; J0456; J0696; J1650; J1815; J1940; J2920; J2930; J7040